=== PATIENT | female | born 1980 | race Two or more races ===

== ENCOUNTER 2018-12-04 17:02 | Emergency (ER) | payer OTHER ==
--- NOTE | 2018-12-04 17:15 | PDOC ---
History of Present Illness - General Chief Complaint: Urinary Problem Stated Complaint: ABDOMINAL PRESSURE Time Seen by Provider: 12/04/18 17:11 History Source: Patient - History of Present Illness Initial Comments: 12/04/18 17:38 The patient is a 38 year old female with no significant PMHx who presents with a 1 month h/o intermittent abdominal cramping. Cramping is B/L LQ, with no identifiable triggering or relieving factors. Evaluated at urgent care 1 month previous for abdominal cramping, diagnosed with UTI, given antibiotic (cannot recall name) Patient developed dysuria last week, again evaluated at urgent care last week, given outpatient Bactrim, completed entire prescribed course. Patient states she is concerned she has cancer as she has significant family h/ o colon cancer (mother diagnosed in 50's, two brothers diagnosed in 30's). Patient has had negative colonoscopy. Patient denies vaginal bleeding, fevers/chills, increased urgency/frequency. LMP was last month. Patient is unsure if she is . NKDA Past History - Past Medical History Allergies/Adverse Reactions: Allergies Allergy/AdvReac Type Severity Reaction Status Date / Time No Known Allergies Allergy Verified 12/04/18 17:10 Home Medications: Ambulatory Orders Dextroamphetamine/Amphetamine [Adderall 10 mg Tablet] 10 mg PO ASDIR 12/04/18 Nitrofurantoin Macrocrystal [Nitrofurantoin] 100 mg PO BID 12/04/18 Review of Systems - Review of Systems Constitutional: No: Chills, Fever HEENTM: No: Blurred Vision, Recent change in vision Respiratory: No: Cough, Shortness of Breath Cardiac (ROS): No: Chest Pain, Lightheadedness, Palpitations, Syncope ABD/GI: No: Constipated, Diarrhea, Nausea, Vomiting : Yes: Burning. No: Discharge, Hematuria *Physical Exam - Physical Exam General Appearance: Yes: Nourished, Appropriately Dressed HEENT: positive: Normal Voice, Hearing Grossly Normal Neck: positive: Trachea midline, Supple Respiratory/Chest: positive: Lungs Clear, Normal Breath Sounds Cardiovascular: positive: Regular Rhythm, S1, S2 Vascular Pulses: Dorsalis-Pedis (R): 2+, Doralis-Pedis (L): 2+ Female Pelvic Exam: positive: normal external exam, cervical os closed, other ( some discharge in vaginal vault, possibly physiologic; no CMT or adnexal tenderness on bimanual exam). negative: adnexal tenderness, vaginal bleeding Gastrointestinal/Abdominal: positive: Normal Bowel Sounds, Soft Musculoskeletal: positive: Normal Inspection. negative: CVA Tenderness (R), CVA Tenderness (L) Extremity: positive: Normal Capillary Refill, Normal Inspection Integumentary: positive: Normal Color, Dry, Warm Neurologic: positive: job site supervisor II-XII NML intact, Fully Oriented, Alert Medical Decision Making - Medical Decision Making 12/04/18 17:38 38 year old female with PMH of UTI presenting with abdominal cramping, h/o recent UTI. VS unremarkable DDx: cystitis, pyelonephritis, hemmoraghic cyst, uterine fibroid, endometrosis, PID less likely ovarian torsion PLAN: Pelvic exam, G/C testing, UA/Urine Cx, Urine , TVUS Patient declining pain medication at this time. 12/04/18 17:57 Pelvic exam shows some discharge, possibly physiologic, bimanual exam shows no CMT, non-tender adnexa, less like PID Will obtain TVUS; no clinical indication for labs as patient has no signs of active infection, symptoms less likely 2/2 to metabolic derangement 12/04/18 18:57 TVUS pending - will sign out to overnight team for further evaluation Callback order placed in EMR for G/C results 12/04/18 18:59 Attending signed out patient to Dr. Valladares (Attending) photonic laboratory technician paged to come to hospital; patient counseled on plan of care *DC/Admit/Observation/Transfer Diagnosis at time of Disposition: Ovarian cyst Qualifiers: Laterality: right Qualified Code(s): N83.201 - Unspecified ovarian cyst, right side - Discharge Dispostion Disposition: HOME Condition at time of disposition: Stable - Referrals - Patient Instructions Printed Discharge Instructions: Ovarian Cyst Additional Instructions: Warm compresses to lower abdomen /Tylenol /Motrin /Aleve as needed for pain Follow-up with your iron handler when you return home Your test results for gonorrhea and chlamydia will be available in 72 hours. You will be called if the test results or positive or you can call the number in your discharge for the results. - Post Discharge Activity
[2018-12-04 17:23] VITALS: BP 114/75; PULSE 85; BMI 19.5
[2018-12-04 17:38] VITALS: TEMP 97.3
--- NOTE | 2018-12-04 17:51 | PDOC ---
Attending Attestation - Resident Resident Name: Francia Hurt - ED Attending Attestation I have performed the following: I have examined & evaluated the patient, The case was reviewed & discussed with the resident, I agree w/resident's findings & plan, Exceptions are as noted - HPI HPI: 12/04/18 17:48 38yo F with no sig PMH presents to the ED with 1 month of intermittent lower abdominal cramping, bloating and pressure. Pt reports the cramping comes on randomly for minutes at a time and then resolves on its own. She reports going to urgent care 1 month ago and was treated with an antibiotic. She does not remember the name. Her symptoms improved but then last week, she began to experience dysuria. She went to urgent care again and was prescribed bactrim for a UTI. She states the dysuria improved but she persistently has intermittent abd cramping and bloating. She denies associated fevers, chills, N/ V/D, vaginal bleeding or discharge. LMP was 3 weeks ago (which was 1 week late) . Denies heavy or painful periods. Pt reports her period is not usually late and thus it was odd that she was a week late last time. She is not sure if she is not or not. She is sexually active with her only, has no hx STIs. Pt reports researching her symptoms online and became concerned for ovarian cancer. Pt presented to the ED today because she is travelling to [place] tomorrow and wanted to know what was going on before she left. She denies any change in the quality or severity of her symptoms over the last few days. Pt reports a family hx of colon ca at a young age but had a normal colonoscopy 4 years ago. She denies weight loss, anorexia, dark or bloody stools. She denies CP, SOB, headache, focal weakness/numbness, dizziness. 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 She is based in [place] but is visiting family in the area at this time. - Physicial Exam PE: 12/04/18 18:33 GENERAL: Awake, alert, and fully oriented, in no acute distress. Well appearing. EYES: PERRLA, EOMI, sclera anicteric, conjunctiva clear ENT:Oropharynx clear without exudates. Moist mucosa NECK: Normal ROM, supple, no lymphadenopathy, JVD, or masses LUNGS: Breath sounds equal, clear to auscultation bilaterally. No wheezes, and no crackles HEART: Regular rate and rhythm, normal S1 and S2, no murmurs, rubs or gallops ABDOMEN: Soft, nontender, normoactive bowel sounds. No guarding, no rebound. No masses /PELVIC: No CVAT, see Dr. Hurt's note for pelvic EXTREMITIES: Normal range of motion, no edema. No cords, erythema, or tenderness NEUROLOGICAL: Normal speech, cranial nerves intact, equal strength and sensation b/l. Normal gait and tone. SKIN: Warm, Dry, normal turgor, no rashes or lesions noted. - Medical Decision Making 12/04/18 18:34 38yo F presents to the ED with 1 month of intermittent lower abdominal cramping and bloating. Vitals wnl Exam with no abd ttp, pelvic with no adnexal/midline ttp. No CMT Urine neg for infection, GC/CT cultures sent and pending DDx includes fibroids vs ovarian cyst vs endometriosis vs PID Unlikely endometriosis as pt does not have painful periods Unlikely PID as she is sexually active only with her , and has no vaginal dc or CMT. Will not treat empriically, however cultures are pending Unlikely appendicitis as no RLQ ttp, month long history is not consistent, and pt has no fever, chills, N/V/D. Plan for TVUS to look for fibroids or ovarian cyst No need for labs at this time as pt has no infectious symptoms, no heavy bleeding, and no concern for metabolic disarray Pt declines pain medication at this time 12/04/18 19:00 TVUS pending Case signed out to overnight attending for further mgmt/dispo
--- NOTE | 2018-12-04 20:53 | PDOC ---
*Physical Exam - Vital Signs Last Vital Signs Temp Pulse Resp BP Pulse Ox 97.3 F L 85 16 114/75 100 12/04/18 17:09 12/04/18 17:09 12/04/18 17:09 12/04/18 17:09 12/04/18 17:09 ED Treatment Course - ADDITIONAL ORDERS Additional order review: Laboratory Results 12/04/18 12/04/18 17:15 17:15 Urine Color Yellow Urine Appearance Clear Urine pH 5.5 Urine Protein Negative Urine Glucose (UA) Negative Urine Ketones Negative Urine Blood Negative Urine Nitrite Negative Urine Bilirubin Negative Urine Urobilinogen 0.2 Ur Leukocyte Esterase Negative Urine HCG, Qual Negative Progress Note - Progress Note Progress Note: Care of this patient received from . Pelvic ultrasound performed and preliminary interpretation by Imaging test preparation tutor: Essentially normal ovaries, fallopian tubes and uterus with 1 cm hemorrhagic, complex cyst of the right ovary. No free fluid noted. Results discussed with patient. All questions were answered. The patient will use [id number] analgesics and warm compresses locally as needed for abdominal discomfort. She should follow-up with her electricians top helper when she returns from her [place] trip on December 08 *DC/Admit/Observation/Transfer Diagnosis at time of Disposition: Ovarian cyst Qualifiers: Laterality: right Qualified Code(s): N83.201 - Unspecified ovarian cyst, right side - Discharge Dispostion Disposition: HOME Condition at time of disposition: Stable - Referrals - Patient Instructions Printed Discharge Instructions: Ovarian Cyst Additional Instructions: Warm compresses to lower abdomen /Tylenol /Motrin /Aleve as needed for pain Follow-up with your electricians top helper when you return home Your test results for gonorrhea and chlamydia will be available in 72 hours. You will be called if the test results or positive or you can call the number in your discharge for the results. - Post Discharge Activity
== END 2018-12-04 20:56 | disposition home or self-care (01) ==
LOC: FER 17:02
DX: N83.201 Unspecified ovarian cyst, right side (principal)
CPT/HCPCS: 36415; 76830-TC; 81003; 84703; 87086; 87491; 87591; 99282-25